=== PATIENT | female | born 1930 | race Caucasian/White ===

== ENCOUNTER 2017-06-02 07:20 | Emergency (ER) | payer MEDICARE ==
[~2017-06-02] VITALS: Ht 165.1 cm; Wt 45.0 kg
[~2017-06-02 07:20] MED LIST: ADVA100A INH; ALPR.25 PO; FAMO1TAB30 PO; LEVO750T33 PO; NICO14DI TD; OXYGENTANK NAS.CANULA; PLAV75TA29 PO; ROSU5 PO; Remove Old Patch TD; SENN1TAB PO; SPIRCAP INH; WALKER WHEELS/F1 MIS
[2017-06-02 07:25] VITALS: PULSE 133; RESP 24; TEMP 99.1; O2SAT 83
[2017-06-02] MEDS ORDERED: SODIUM CHLORIDE 0.9% FLUSH 10 ML FLUSH IVF PRN (07:30)
--- NOTE | 2017-06-02 07:32 | PD ---
HPI Chief Complaint: shortness of breath Time Seen by Provider: 07:27 Travel History International Travel<30 days: No Contact w/Intl Traveler<30days: No Traveled to known affect area: No History of Present Illness HPI The patient is a 87-year-old female who presents to the emergency department via EMS from a [facility] facility for shortness of breath. According to EMS the patient's shortness of breath started last night progressively worsened today. Upon arrival the patient is visibly short of breath, only able to shake her head yes or no secondary to her dyspnea. The patient did receive steroids and nebulizers prior to arrival. The patient does have a history of COPD. She does note a cough, mostly nonproductive, shortness of breath, but shakes her head no to chest pain. No fever according to EMS. Somewhat limited history secondary to the patient's current clinical symptoms. PFSH Past Medical History Arthritis: No Asthma: No Autoimmune Disease: No Anxiety: Yes Depression: Yes Heart Rhythm Problems: No Cancer: No Cardiovascular Problems: No High Cholesterol: Yes Chemotherapy: No Chest Pain: No Congestive Heart Failure: No COPD: Yes Cerebrovascular Accident: Yes (Mild CVA 2016) Diabetes: No Diminished Hearing: No Endocrine: No GERD: No Genitourinary: No Hiatal Hernia: No Immune Disorder: No Kidney Stones: No Neurologic: No Psychiatric: Yes Reproductive: No Respiratory: No Migraines: No Radiation Therapy: No Renal Failure: No Seizures: No Sickle Cell Disease: No Sleep Apnea: No Thyroid Disease: No Ulcer: No Past Surgical History Abdominal Surgery: Yes (Lap Hysterectomy) AICD: No Arteriovenous Shunt: No Cardiac Surgery: No Ear Surgery: No Endocrine Surgery: No Eye Surgery: Yes (Cataract Surgery) Genitourinary Surgery: No Gynecologic Surgery: No Hysterectomy: Yes Insulin Pump: No Joint Replacement: No Oral Surgery: Yes (Dentures) Thoracic Surgery: No Other Surgery: Yes (PT STATES "2 ARTERIES IN NECK TO GET PLAQUE OUT") Social History Alcohol Use: No Tobacco Use: Yes (1/2PPD) Substance Use: No Allergies-Medications (Allergen,Severity, Reaction): Coded Allergies: Poultry (Unverified Adverse Reaction, Severe, PAIN, 11/29/16) Reported Meds & Prescriptions Reported Meds & Active Scripts Active Walker with Front Wheels (Device) 1 Mis Mis 1 Ea .ROUTE DIRECTED Levofloxacin 750 Mg Tab 750 Mg PO DAILY Senna Plus 8.6-50 mg (Sennosides-Docusate Sodium) 1 Tab Tab 1 Tab PO BID [Remove Old Patch] Misc 1 TD DAILY Nicotine Patch (Nicotine) 14 Mg/24 Hr Patch 1 Patch TD DAILY Xanax (Alprazolam) 0.25 Mg Tab 0.25 Mg PO BID PRN Oxygen tank (Oxygen) 1 Ea Tank 2 Liter DEVON.CANULA CONTINUOUS Oxygen Concentrator Portable Gaseous 2 L/min via Nasal Cannula Continuous For 99 months Reported Famotidine 10 Mg Tab 10 Mg PO BID Plavix (Clopidogrel Bisulfate) 75 Mg Tab 75 Mg PO DAILY Crestor (Rosuvastatin Calcium) 5 Mg Tab 5 Mg PO DAILY Spiriva Handihaler (Tiotropium Inh) 18 Mcg Cap 18 Mcg INH DAILY 1 capsule = 18 mcg Advair Diskus Inh (Fluticasone-Salmeterol Inh) 100-50 Mcg/Blist Aer 1 Puff INH BID Rinse mouth after use. Review of Systems ROS Limitations: Clinical Condition Except as stated in HPI: all other systems reviewed are Neg General / Constitutional: No: Fever Cardiovascular: No: Chest Pain or Discomfort Respiratory: Positive: Cough, Shortness of Breath, Wheezing Gastrointestinal: No: Nausea, Vomiting, Abdominal Pain Musculoskeletal: Positive: Weakness Physical Exam Narrative GENERAL: Awake 87 year-old female appears her stated age and is in moderate respiratory distress. SKIN: Focused skin assessment warm/dry. HEAD: Atraumatic. Normocephalic. EYES: No injection or drainage. ENT: No nasal bleeding or discharge. Mucous membranes pink and moist. NECK: Trachea midline. No JVD. CARDIOVASCULAR: Tachycardic with a heart rate in the 120s. RESPIRATORY: Tachypnea with a respiratory rate of 40. Supraclavicular retractions. Diminished breath sounds throughout with a few scattered wheezes. GASTROINTESTINAL: Abdomen soft, non-tender, nondistended. No rebound tenderness. MUSCULOSKELETAL: No obvious deformities. No clubbing. No cyanosis. No edema. NEUROLOGICAL: Awake and alert. No obvious cranial nerve deficits. Motor grossly within normal limits. Shakes her head yes or no, but unable to speak secondary to dyspnea. PSYCHIATRIC: Appropriate mood and affect; insight and judgment normal. Data Data Last Documented VS Vital Signs Date Time Temp Pulse Resp B/P (MAP) Pulse Ox O2 Delivery O2 Flow Rate FiO2 06/02/17 09:08 109 20 155/82 (106) 100 BiPAP 06/02/17 07:45 60 06/02/17 07:38 2.00 06/02/17 07:25 99.1 Orders Orders Complete Blood Count With Diff (06/02/17 07:27) Comprehensive Metabolic Panel (06/02/17 07:27) B-Type Natriuretic Peptide (06/02/17 07:27) Act Partial Throm Time (Ptt) (06/02/17 07:27) Prothrombin Time / Inr (Pt) (06/02/17 07:27) Magnesium (Mg) (06/02/17 07:27) Ckmb (Isoenzyme) Profile (06/02/17 07:27) Troponin I (06/02/17 07:27) Blood Culture (06/02/17 07:27) Iv Access Insert/Monitor (06/02/17 07:27) Electrocardiogram (06/02/17 07:27) Ecg Monitoring (06/02/17 07:27) Oximetry (06/02/17 07:27) Oxygen Administration (06/02/17 07:27) Chest, Single Ap (06/02/17 07:27) Sodium Chloride 0.9% Flush (Ns Flush) (06/02/17 07:30) Albuterol-Ipratropium Neb (Duoneb Neb) (06/02/17 07:30) Resp Bipap / Cpap Non Invas Vt (06/02/17 07:27) Lactic Acid (06/02/17 07:27) Cefepime Inj (Maxipime Inj) (06/02/17 08:30) Azithromycin Inj (Zithromax Inj) (06/02/17 08:30) Labs Laboratory Tests Test 06/02/17 07:40 06/02/17 07:50 White Blood Count 19.3 TH/MM3 Red Blood Count 3.90 MIL/MM3 Hemoglobin 9.6 GM/DL Hematocrit 30.7 % Mean Corpuscular Volume 78.5 FL Mean Corpuscular Hemoglobin 24.5 PG Mean Corpuscular Hemoglobin Concent 31.2 % Red Cell Distribution Width 18.1 % Platelet Count 438 TH/MM3 Mean Platelet Volume 7.6 FL Neutrophils (%) (Auto) 82.9 % Lymphocytes (%) (Auto) 7.8 % Monocytes (%) (Auto) 8.2 % Eosinophils (%) (Auto) 0.7 % Basophils (%) (Auto) 0.4 % Neutrophils # (Auto) 16.0 TH/MM3 Lymphocytes # (Auto) 1.5 TH/MM3 Monocytes # (Auto) 1.6 TH/MM3 Eosinophils # (Auto) 0.1 TH/MM3 Basophils # (Auto) 0.1 TH/MM3 CBC Comment DIFF FINAL Differential Comment Prothrombin Time 10.6 SEC Prothromb Time International Ratio 1.0 RATIO Activated Partial Thromboplast Time 23.3 SEC Blood Urea Nitrogen 16 MG/DL Creatinine 0.60 MG/DL Random Glucose 95 MG/DL Total Protein 7.4 GM/DL Albumin 3.2 GM/DL Calcium Level 8.4 MG/DL Magnesium Level 2.2 MG/DL Alkaline Phosphatase 116 U/L Aspartate Amino Transf (AST/SGOT) 20 U/L Alanine Aminotransferase (ALT/SGPT) 16 U/L Total Bilirubin 0.6 MG/DL Sodium Level 134 MEQ/L Potassium Level 3.8 MEQ/L Chloride Level 98 MEQ/L Carbon Dioxide Level 31.6 MEQ/L Anion Gap 4 MEQ/L Estimat Glomerular Filtration Rate 95 ML/MIN Total Creatine Kinase 64 U/L Troponin I LESS THAN 0.02 NG/ML B-Type Natriuretic Peptide 147 PG/ML Lactic Acid Level 0.8 mmol/L MDM Medical Decision Making Medical Screen Exam Complete: Yes Emergency Medical Condition: Yes Medical Record Reviewed: Yes Interpretation(s) EKG reveals sinus tachycardia with supraventricular premature complexes and PVC noted. Heart rate 115. Chest x-ray reveals changes of obstructive pulmonary disease with more prominent right lower lobe airspace consolidation. Differential considerations include worsening right lower lobe atelectasis/scarring versus superimposed right lower lobe pneumonia versus chronic aspiration. Last Impressions Chest X-Ray 06/02/17 0727 Signed Impressions: Service Date/Time: Friday, June 02, 2017 07:46 - CONCLUSION: 1. Changes of obstructive pulmonary disease with more prominent right lower lobe airspace consolidation. Differential considerations include worsening right lower lobe atelectasis/scarring versus superimposed right lower lobe pneumonia versus chronic aspiration. Harrison Grey MD Laboratory Tests Test 06/02/17 07:40 06/02/17 07:50 White Blood Count 19.3 TH/MM3 Red Blood Count 3.90 MIL/MM3 Hemoglobin 9.6 GM/DL Hematocrit 30.7 % Mean Corpuscular Volume 78.5 FL Mean Corpuscular Hemoglobin 24.5 PG Mean Corpuscular Hemoglobin Concent 31.2 % Red Cell Distribution Width 18.1 % Platelet Count 438 TH/MM3 Mean Platelet Volume 7.6 FL Neutrophils (%) (Auto) 82.9 % Lymphocytes (%) (Auto) 7.8 % Monocytes (%) (Auto) 8.2 % Eosinophils (%) (Auto) 0.7 % Basophils (%) (Auto) 0.4 % Neutrophils # (Auto) 16.0 TH/MM3 Lymphocytes # (Auto) 1.5 TH/MM3 Monocytes # (Auto) 1.6 TH/MM3 Eosinophils # (Auto) 0.1 TH/MM3 Basophils # (Auto) 0.1 TH/MM3 CBC Comment DIFF FINAL Differential Comment Prothrombin Time 10.6 SEC Prothromb Time International Ratio 1.0 RATIO Activated Partial Thromboplast Time 23.3 SEC Blood Urea Nitrogen 16 MG/DL Creatinine 0.60 MG/DL Random Glucose 95 MG/DL Total Protein 7.4 GM/DL Albumin 3.2 GM/DL Calcium Level 8.4 MG/DL Magnesium Level 2.2 MG/DL Alkaline Phosphatase 116 U/L Aspartate Amino Transf (AST/SGOT) 20 U/L Alanine Aminotransferase (ALT/SGPT) 16 U/L Total Bilirubin 0.6 MG/DL Sodium Level 134 MEQ/L Potassium Level 3.8 MEQ/L Chloride Level 98 MEQ/L Carbon Dioxide Level 31.6 MEQ/L Anion Gap 4 MEQ/L Estimat Glomerular Filtration Rate 95 ML/MIN Total Creatine Kinase 64 U/L Troponin I LESS THAN 0.02 NG/ML B-Type Natriuretic Peptide 147 PG/ML Lactic Acid Level 0.8 mmol/L Differential Diagnosis Differential diagnosis includes COPD exacerbation, pulmonary embolism, pleural effusion, congestive heart failure, flash pulmonary edema, bronchitis, pneumonia. Narrative Course IV was established, labs are drawn and sent, and the patient was placed on cardiac telemetry monitoring and continuous pulse oximetry monitoring. EKG was ordered and interpreted. Chest x-ray was obtained. The patient was placed on BiPAP 12/5 at 60%. Blood culture and lactic acid were sent to lab. The patient received nebulizers. Chest x-ray reveals right lower lobe pneumonia, white count is 19.3, patient meets sepsis criteria. She is from a [facility] facility, therefore, was administered cefepime and Zithromax. I reviewed the paperwork, it appears the patient may be a hospice patient. Therefore, nursing staff was advised to contact hospice for evaluation, to evaluate if this is in fact a hospice patient under their care. The patient was evaluated by hospice in the emergency department who had a discussion with the patient's family, they requested patient be transferred back to [facility]. The patient was taken off of BiPAP. She will be treated for pneumonia with antibiotics, will be discharged back to the [facility] under hospice care. Critical Care Narrative Aggregate critical care time was 35 minutes. Time to perform other separately billable procedures was not included in the critical care time. My time did not include minutes spent treating any other patients simultaneously or on activities that did not directly contribute to the patient's treatment. The services I provided to this patient were to treat and/or prevent clinically significant deterioration that could result in: Anoxia, hypoxia, respiratory failure. I provided critical care services requiring my management, as noted below: Chart data review, documentation time, medication orders and management, vital sign assessments/reviewing monitor data, ordering and reviewing lab tests, ordering and interpreting/reviewing x-rays and diagnostic studies, care of the patient and discussion of the patient with the admitting physicians. Sepsis Criteria SIRS Criteria (2 or more): Heart rate over 90, RR > 20 or PaCO2 < 32, WBC > 94248, < 4000 or > 10% bands Sepsis Criteria (SIRS+source): Infect source susp/known Diagnosis Primary Impression: Right lower lobe pneumonia Qualified Codes: J18.1 - Lobar pneumonia, unspecified organism Additional Impression: Sepsis Qualified Codes: A41.9 - Sepsis, unspecified organism Patient Instructions: General Instructions Additional Instructions: Transfer back to [facility] per family's request as patient is a hospice patient. Levaquin as directed. Med/Other Pt SpecificInfo: Prescription(s) given Scripts Levofloxacin (Levaquin) 500 Mg Tablet 500 MG PO DAILY for Infection for 7 Days, #7 TAB 0 Refills Prov: Nabil Cobb MD 06/02/17 Disposition: 70 TRANSFER TO OTHER FACILITY (transfer back to [facility], under hospice care) Condition: Stable Nabil Cobb MD Jun 02, 2017 07:32
[2017-06-02 07:38] VITALS: O2SAT 92
[2017-06-02 07:45] VITALS: O2SAT 97
[2017-06-02] MEDS: RESP: ALBUTEROL 2.5 MG/IPRATROPIUM 0.5 MG NEB (SCH) INH (07:48)
[2017-06-02 08:09] LABS: BASOPHIL # 0.1 TH/MM3 (0-0.2); BASOPHIL % 0.4 % (0.0-2.0); EOSINOPHIL # 0.1 TH/MM3 (0-0.4); EOSINOPHIL % 0.7 % (0.0-4.0); HEMATOCRIT 30.7 % (35.0-46.0); HEMOGLOBIN 9.6 GM/DL (11.6-15.3); LYMPH % 7.8 % (9.0-44.0); LYMPHOCYTE # 1.5 TH/MM3 (1.0-4.8); MEAN CELL VOLUME 78.5 FL (80.0-100.0); MEAN CORPUSCULAR HEMOGLOBIN 24.5 PG (27.0-34.0); MEAN CORPUSCULAR HGB CONC 31.2 % (32.0-36.0); MEAN PLATELET VOLUME 7.6 FL (7.0-11.0); MONO % 8.2 % (0.0-8.0); MONOCYTE # 1.6 TH/MM3 (0-0.9); NEUT % 82.9 % (16.0-70.0); PLATELET COUNT 438 TH/MM3 (150-450); RED CELL DISTRIBUTION WIDTH 18.1 % (11.6-17.2); WHITE BLOOD COUNT 19.3 TH/MM3 (4.0-11.0)
--- NOTE | 2017-06-02 08:10 | RADRPT ---
EXAM DATE/TIME: 06/02/2017 07:46 [facility] COMPARISON: CHEST PA & LAT, March 16, 2016, 20:51. INDICATIONS : Shortness of breath. MEDICAL HISTORY : Chronic obstructive pulmonary disease. SURGICAL HISTORY : None. ENCOUNTER: Initial ACUITY: 1 day PAIN SCORE: 0/10 LOCATION: Bilateral chest FINDINGS: Lungs are hyperexpanded with diffuse interstitial prominence. Right lower lobe airspace consolidation which appears more prominent on current exam. Cardiomediastinal contours are stable. Tortuous descen ding thoracic aorta. Redemonstration of prominent thoracolumbar scoliosis. CONCLUSION: 1. Changes of obstructive pulmonary disease with more prominent right lower lobe airspace consolidati on. Differential considerations include worsening right lower lobe atelectasis/scarring versus superi mposed right lower lobe pneumonia versus chronic aspiration. Harrison Grey MD on June 02, 2017 at 8:07 Board Certified Radiologist. This report was verified electronically.
[2017-06-02 08:16] LABS: PROTHROMBIN TIME - PATIENT 10.6 SEC (9.8-11.6)
[2017-06-02 08:30] LABS: ALBUMIN 3.2 GM/DL (3.4-5.0); ALT (GPT) 16 U/L (10-53); BICARBONATE 31.6 MEQ/L (21.0-32.0); BLOOD UREA NITROGEN 16 MG/DL (7-18); CALCIUM 8.4 MG/DL (8.5-10.1); CHLORIDE 98 MEQ/L (98-107); GLOMERULAR FILTRATION RATE 95 ML/MIN (>89); GLUCOSE,RANDOM 95 MG/DL (74-106); SODIUM (NA) 134 MEQ/L (136-145)
[2017-06-02] MEDS ORDERED: CEFEPIME INJ 2,000 MG in SODIUM CHLORIDE 0.9% INJ 100 ML IV ONE (08:30)
[2017-06-02] MEDS ORDERED: AZITHROMYCIN INJ 500 MG in SODIUM CHLOR 0.9% 250 ML INJ 250 ML IV ONE (08:30)
[2017-06-02 08:43] LABS: AST (GOT) 20 U/L (15-37); MAGNESIUM 2.2 MG/DL (1.5-2.5)
[2017-06-02 08:44] LABS: ALKALINE PHOSPHATASE 116 U/L (45-117); TOTAL BILIRUBIN ADULT 0.6 MG/DL (0.2-1.0); TOTAL PROTEIN 7.4 GM/DL (6.4-8.2); TROPONIN I LESS THAN 0.02 NG/ML (0.02-0.05)
[2017-06-02 09:08] VITALS: BP 155/82; PULSE 109; RESP 20; O2SAT 100
[2017-06-02] MEDS ORDERED: LEVA500T33 PO (09:41)
[2017-06-02 11:48] VITALS: BP 141/72; PULSE 100; RESP 20; O2SAT 95
[2017-06-02 12:26] VITALS: BP 132/67
--- NOTE | 2017-06-02 23:44 | EKG ---
Date Performed: 06/02/2017 Time Performed: 07:40:47 PTAGE: 87 years EKG: SINUS TACHYCARDIA WITH SHORT SC INTERVAL WITH FREQUENT VENTRICULAR PREMATURE COMPLEXES WITH OCCASIONAL SUPRAVENTRICULAR PREMATURE COMPLEXES POSSIBLE LEFT ATRIAL ENLARGEMENT MODERATE ST DEPRESS ION ABNORMAL ECG PREVIOUS TRACING : 03/17/2016 12.44 Compared to prior tracing, NSR no longer present DOCTOR: Cat Leonard Interpretating Date/Time 06/02/2017 23:43:25
== END 2017-06-02 12:29 | disposition short-term general hospital (02) ==
LOC: NEPC 07:20
DX: J18.1 Lobar pneumonia, unspecified organism (principal); A41.9 Sepsis, unspecified organism; R94.31 Abnormal electrocardiogram [ECG] [EKG]; F17.210 Nicotine dependence, cigarettes, uncomplicated; F32.9 Major depressive disorder, single episode, unspecified; E78.00 Pure hypercholesterolemia, unspecified; J44.0 Chronic obstructive pulmonary disease with (acute) lower respiratory infection; Z86.73 Personal history of transient ischemic attack (TIA), and cerebral infarction without residual deficits; Z79.01 Long term (current) use of anticoagulants
CPT/HCPCS: 71045; 80053; 82550; 83605; 83735; 83880; 84484; 85025; 85610; 85730; 87040; 93005; 94640; 94664; 96374; 96375; 99291; J0456; J0692; J7050; 94002